=== PATIENT | female | born 1955 | race Caucasian/White ===

== ENCOUNTER 2016-09-29 16:08 | Emergency (ER) | payer OTHER ==
[2016-09-29 16:29] VITALS: BP 149/82; PULSE 94; RESP 18; TEMP 98.2; O2SAT 95
[2016-09-29] MEDS ORDERED: IPRATROPIUM/ALBUTEROL 3 ML DEYVIAL IH ONE (18:41)
[2016-09-29] MEDS ORDERED: AZITHROMYCIN 250 MG TAB PO ONE (18:42)
--- NOTE | 2016-09-29 18:44 | UCPHY ---
H & P Time Seen by Provider: 09/29/16 18:35 Patient Type: New HPI/ROS: This patient reports ongoing hacky cough this primarily dry cage Aleve associated productive phlegm 10 days after exposure to a granddaughter with RSV the. She clarifies that her symptoms started a week after exposure and persists now for 10 days with associated wheezing that started a 4 days prior to arrival. The wheezing improved somewhat with albuterol inhaler without a spacer at home. She has a history of mild asthma and reports some wheezing also improves with albuterol. ROS: No high fevers or chills. No other constitutional symptoms. HEENT: No significant nasal congestion. No sore throat. Pulmonary: No pleuritic pain. No respiratory distress. Cardiovascular: No lightheadedness or leg swelling or calf pain. GI: No symptoms skin: No rash 10 point ROS is otherwise negative. Past Medical/Surgical History: Mild asthma Scoliosis Smoking Status: Never smoked Physical Exam: General Appearance: Pleasant 61-year-old female Alert, no distress. Eyes: Pupils equal and round no pallor or injection. ENT, Mouth: Mucous membranes moist. Respiratory: Minimal expiratory wheeze bilaterally. No rales or rhonchi. No respiratory distress. Cardiovascular: Regular rate and rhythm. No JVD. No murmur gallop or rub. Gastrointestinal: Abdomen is soft and nontender, no masses, bowel sounds normal. Neurological: Alert with no focal deficits. Skin: Warm and dry, no rashes. Musculoskeletal: Neck is supple nontender. Extremities are symmetrical, full range of motion. Psychiatric: Mood and affect are normal. DIFFERENTIAL DIAGNOSIS: After history and physical exam differential diagnosis was considered for asthma, bronchitis, URI with cough with asthma exacerbation, pertussis, mycoplasma Constitutional: Initial Vital Signs Temperature (C) 36.8 C 09/29/16 16:26 Heart Rate 94 09/29/16 16:26 Respiratory Rate 18 09/29/16 16:26 Blood Pressure 149/82 H 09/29/16 16:26 O2 Sat (%) 95 09/29/16 16:26 O2 Delivery Mode Room Air Allergies/Adverse Reactions: Penicillins Allergy (Intermediate, Verified 09/29/16 16:24) Sulfa (Sulfonamide Antibiotics) [Sulfa(Sulfonamide Antibiotics)] Allergy ( Intermediate, Verified 09/29/16 16:24) Home Medications: Medication Instructions Recorded Estradiol/Norethindrone Acet 08/25/12 [Activella 0.5-0.1 mg Tablet] Famotidine [Pepcid 20 MG (OTC)] 08/25/12 Estradiol/Norethindrone Acet 1 each PO 08/27/12 [Activella 0.5-0.1 mg Tablet] Albuterol 09/29/16 Azithromycin [Zithromax] 250 mg PO DAILY #4 tab 09/29/16 Dulera 100 Mcg/5 Mcg Inhaler 09/29/16 MDM/Departure - MDM Medications Given: Discontinued Medications Albuterol/Ipratropium (Duoneb) 3 ml IH EDNOW ONE Stop: 09/29/16 18:42 Last Admin: 09/29/16 18:59 Dose: 3 ml Azithromycin (Zithromax) 500 mg PO EDNOW ONE PRN Reason: Protocol Stop: 09/29/16 18:43 Last Admin: 09/29/16 18:59 Dose: 500 mg ED Course/Re-evaluation: DuoNeb with increased aeration. Decreased wheeze. Discussion: Patient with was likely viral illness causing asthmatic bronchitis but will also cover atypical bacteria given the duration of her symptoms-10 days. I counseled regarding this. She does not have respiratory distress she improved with treatment here in appears clinically well. Given her minimal symptoms but not think she needs oral steroids at this time. I counseled regarding this. 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 [Primary Care Provider] - As per Instructions - PQRS PQRS Measurement: NA
== END 2016-09-29 19:25 | disposition home or self-care (01) ==
LOC: CED 16:08
DX: J20.9 Acute bronchitis, unspecified (principal); J45.909 Unspecified asthma, uncomplicated
CPT/HCPCS: G0463-PO

== ENCOUNTER → 2018-01-23 | Outpatient (CLI) | payer OTHER | LOC: FIMAGING 08:54 | PROVIDERS: ATTEND Nurse Practitioner Obstetrics & Gynecology | DX: Z12.31 Encounter for screening mammogram for malignant neoplasm of breast (principal); Z80.3 Family history of malignant neoplasm of breast ==